=== PATIENT | male | born 1970 | race Caucasian/White ===

== ENCOUNTER 2022-11-23 07:18 | Emergency (ER) | payer OTHER ==
[~2022-11-23] VITALS: Ht 154.9 cm; Wt 68.0 kg
[~2022-11-23 07:18] MED LIST: Lovastatin10 MG PO
[2022-11-23 08:15] VITALS: BP 144/99
== END 2022-11-23 08:21 | disposition home or self-care (01) ==
LOC: ER 07:18
DX: Z48.02 Encounter for removal of sutures (principal); Z79.899 Other long term (current) drug therapy
CPT/HCPCS: 99281